=== PATIENT | male | born 1980 | race African-American/Black ===

== ENCOUNTER 2017-01-08 09:45 | Emergency (ER) | payer SELFPAY ==
[2017-01-08] MEDS ORDERED: Naproxen 500 MG TAB ONE (10:10)
== END 2017-01-08 10:19 | disposition home or self-care (01) ==
LOC: MADERS 09:45
DX: S76.312A Strain of muscle, fascia and tendon of the posterior muscle group at thigh level, left thigh, initial encounter (principal); F17.210 Nicotine dependence, cigarettes, uncomplicated; W50.0XXA Accidental hit or strike by another person, initial encounter; Y93.02 Activity, running; Y99.8 Other external cause status
CPT/HCPCS: 99283

== ENCOUNTER 2018-11-29 20:50 | Emergency (ER) | payer OTHER, SELFPAY ==
--- NOTE | 2018-11-29 22:07 | RAD ---
AP view chest. HISTORY: Cough. AP view chest obtained. The lungs are well aerated. No evidence of active intrathoracic disease seen. No evidence of effusions, pneumonia or pneumothorax seen. IMPRESSION: Unremarkable AP view chest.
== END 2018-11-29 22:25 | disposition home or self-care (01) ==
LOC: MADERS 20:50
DX: J20.9 Acute bronchitis, unspecified (principal); F17.210 Nicotine dependence, cigarettes, uncomplicated
CPT/HCPCS: 71045; J7620

== ENCOUNTER 2020-05-13 08:46 | Emergency (ER) | payer OTHER, SELFPAY | END 2020-05-13 09:20 | disposition home or self-care (01) | LOC: MADERS 08:46 | DX: M54.5 Low back pain (principal); F17.210 Nicotine dependence, cigarettes, uncomplicated; Z71.6 Tobacco abuse counseling; X50.1XXA Overexertion from prolonged static or awkward postures, initial encounter | CPT/HCPCS: 99406 ==

== ENCOUNTER 2022-08-25 22:06 | Emergency (ER) | payer OTHER, SELFPAY | END 2022-08-25 23:47 | disposition home or self-care (01) | LOC: MADERS 22:06 | DX: B34.9 Viral infection, unspecified (principal); F17.210 Nicotine dependence, cigarettes, uncomplicated; Z20.822 Contact with and (suspected) exposure to COVID-19 | CPT/HCPCS: 87804; 99283; U0003; U0005 ==

== ENCOUNTER 2024-02-03 07:14 | Emergency (ER) | payer SELFPAY ==
[2024-02-03] MEDS ORDERED: Acetaminophen 500 MG TAB ONE (08:08)
[2024-02-03 09:03] LABS: Influenza A by NAA Not Detected (NotDetected); Influenza B by NAA Not Detected (NotDetected); SARS-CoV-2 NAA Rapid Test DETECTED (NotDetected)
== END 2024-02-03 08:16 | disposition home or self-care (01) ==
LOC: MADERS 07:14
DX: B34.9 Viral infection, unspecified (principal); F17.210 Nicotine dependence, cigarettes, uncomplicated
CPT/HCPCS: 87081; 87430; 99283

== ENCOUNTER 2024-06-13 07:02 | Emergency (ER) | payer SELFPAY | END 2024-06-13 08:17 | disposition home or self-care (01) | LOC: MADERS 07:02 | DX: B34.9 Viral infection, unspecified (principal); F17.210 Nicotine dependence, cigarettes, uncomplicated | CPT/HCPCS: 99283 ==

== ENCOUNTER 2025-02-06 06:52 | Emergency (ER) | payer SELFPAY ==
[2025-02-06 07:18] LABS: Hematocrit 40.3 % (42.0-52.0); Hemoglobin 12.5 g/dL (14.0-18.0); Mean Corpuscular Hemoglobin 28.0 pg (27.0-31.0); Mean Corpuscular Volume 90.0 fl (78.0-98.0); Platelet Count 276 10x3/uL (130-400); Red Blood Cell (RBC) Count 4.48 mill/uL (4.70-6.10); White Blood Cell (WBC) Count 5.2 10x3/uL (4.8-10.8)
[2025-02-06 07:23] LABS: MDiff Complete? YES
[2025-02-06 07:24] LABS: Platelet Adequacy Comment Appears Adequate
[2025-02-06 07:29] LABS: AST (SGOT) 20 U/L (11-34); Alkaline Phosphatase 44 U/L (40-110); Anion Gap 12 mmol/L (10-20); BUN (Urea Nitrogen) 12 mg/dL (8.9-20.6); Bilirubin, Total 0.3 mg/dL (0.3-1.2); Calcium 9.5 mg/dL (7.8-10.44); Carbon Dioxide 25 mmol/L (22-29); Chloride 104 mmol/L (98-107); Glucose 166 mg/dL (70-105); Potassium 3.7 mmol/L (3.5-5.1); Sodium 137 mmol/L (136-145)
[2025-02-06 07:32] LABS: Glucose, Urine (Dipstick) 250 mg/dL (Negative); Leukocyte Negative (Negative); Protein, Urine (Dipstick) Negative (Neg-Trace); Specific Gravity, Urine Greater/Equal 1.030 (1.005-1.030)
[2025-02-06 07:38] LABS: Bacteria/HPF Rare-Few HPF (None Seen); CAUTI Indications for Culture Acute Hematuria; RBC/HPF 0-3 HPF (0-3); WBC/HPF 0-3 HPF (0-3)
[2025-02-06 07:39] LABS: Urine Culture Reflex No No
[2025-02-06 07:41] LABS: Lipase 62 U/L (8-78)
[2025-02-06 07:55] LABS: ALT (SGPT) 24 U/L (Less than 45); Albumin 4.3 g/dL (3.1-4.5); Globulin 2.6 g/dL (2.4-3.5)
[2025-02-06 08:07] LABS: Calc. Creatinine Clearance 0 mL/min (70-130)
[2025-02-06] MEDS ORDERED: Pantoprazole 40 MG DR.TAB ONE (08:14)
[2025-02-06] MEDS ORDERED: Mag-Al 1200 mg/1200 mg/30 ML UDCUP ONE (08:14)
[2025-02-06] MEDS ORDERED: Lidocaine Viscous Sol 2% 15 ml UD Cup ONE (08:14)
== END 2025-02-06 08:22 | disposition home or self-care (01) ==
LOC: MADERS 06:52
DX: R10.10 Upper abdominal pain, unspecified (principal); R73.09 Other abnormal glucose; F17.210 Nicotine dependence, cigarettes, uncomplicated
CPT/HCPCS: 80053; 81001; 83690; 85025; 93005; 99284